=== PATIENT | male | born 1960 | race Caucasian/White ===

== ENCOUNTER 2016-12-28 15:53 | Emergency (ER) | payer OTHER ==
[~2016-12-28] VITALS: Ht 167.6 cm; Wt 77.1 kg
--- NOTE | ~2016-12-28 | CT4 ---
[facility] A Service of [facility] RADIOLOGY TEXT RESULTS PATIENT: WOLF CINTRON LOCATION: SED : 62 UNIT #: [id number] AGE: [address]: RAFAL PRICE SEX: M ORDER DR: [id number] [address] [address] [id number] E MR#: [id number] Acc #: [id number] NAME: WOLF CINTRON : 1960 SEX: M STUDY DATE/TIME: 12/28/2016 17:20 UNIT: SED ROOM: STUDY DESCRIPTION: CT Abd and Pelv Wo Cont Attending Physician: Rafal Price Ordering Physician: Rafal Price Primary Care Physician: Kai Mishra M.D. MEDICAL IMAGING REPORT This report is preliminary unless electronic signature is present. EXAM CT abdomen and pelvis without contrast HISTORY Nausea, vomiting, lower abdominal pain x1 week. COMPARISON CT abdomen and pelvis 12/31/2014 FINDINGS Axial images performed through the abdomen and pelvis without contrast. Multiplanar reconstructed images reviewed at a workstation. This CT exam was performed with one or more of the following radiation dose reduction techniques: Automatic exposure control, adjustment of mA and/or kV according to patient size, and iterative reconstruction. Lung bases remarkable for extensive emphysema and fibrosis and extensive right middle lobe bronchiectasis and bronchial wall thickening. Small amount of left lower lobe bronchiectasis. No acute airspace disease or consolidation, no effusions. Liver and spleen unremarkable. The gallbladder is surgically absent. Pancreas unremarkable. There is a left adrenal nodule measuring about 3.6 x 1.9 cm. This may be slightly increased when compared to the patient's study from 2014, but overall morphology remains unchanged. There is also a small nodule right adrenal gland. Comparison also made to CT in December 2013 and the left adrenal nodule does not appear significantly changed. Patient demonstrates a horseshoe kidney. Visualized GI tract unremarkable, except for a few scattered colonic diverticula. PELVIS: Bladder, prostate unremarkable. Osseous structures unremarkable except for degenerative changes lower thoracic spine. Extraabdominal soft tissues unremarkable. [facility] A Service of [facility] RADIOLOGY TEXT RESULTS PATIENT: WOLF CINTRON [id number] [birth year] UNIT #: [id number] AGE: [address]: RAFAL PRICE SEX: M ORDER DR: IMPRESSION 1. No acute intraabdominal or intrapelvic pathology. 2. Horseshoe kidney. 3. Left adrenal nodule not significantly changed when compared to studies dating back to December 2013, probably represents an incidental adenoma. Dictated by... Zulema Long M.D. THIS IS AN ELECTRONICALLY VERIFIED REPORT Zulema Long M.D. at 12/28/2016 10:04 PM JEFF/shahla TD: 12/28/2016 19:24 JOB #: [id number] MEDICAL IMAGING REPORT Page 1 of 1
--- NOTE | ~2016-12-28 | CR63 ---
[facility] A Service of [facility] RADIOLOGY TEXT RESULTS PATIENT: WOLF CINTRON LOCATION: SED : 62 UNIT #: [id number] AGE: [address]: RAFAL PRICE SEX: M ORDER DR: [id number] [address] [address] [id number] E MR#: [id number] Acc #: [id number] NAME: WOLF CINTRON : 1960 SEX: M STUDY DATE/TIME: 12/28/2016 17:19 UNIT: SED ROOM: STUDY DESCRIPTION: CR Chest 2 View Attending Physician: Rafal Price Ordering Physician: Rafal Priec Primary Care Physician: Kai Mishra M.D. MEDICAL IMAGING REPORT This report is preliminary unless electronic signature is present. EXAM PA and lateral chest HISTORY Cough and fatigue for 1 week. FINDINGS Two views of the chest demonstrate bilateral emphysema and moderately extensive interstitial scarring in both lungs and probable multifocal mild bronchiectasis. No airspace infiltrates. Small amount of fluid or pleural thickening at the lateral left base, stable compared to 01/01/2015. IMPRESSION 1. No definite active disease. 2. Bilateral emphysema and fibrotic scarring and probable bronchiectasis. Findings are similar to 01/01/2015. Dictated by... Alexi Anthony M.D. THIS IS AN ELECTRONICALLY VERIFIED REPORT Alexi Anthony M.D. at 12/28/2016 11:23 PM LUIS ANGEL/teresa TD: 12/28/2016 19:10 JOB #: [id number] MEDICAL IMAGING REPORT Page 1 of 1
[~2016-12-28 15:53] MED LIST: ACTOS PO; ADVAIR 250-501 EAC1 IH; ADVAIR 250-501 EACH; ADVAIR 250-501 EACH IH; ALBUTEROL17 GM IH; ALBUTEROL17 GM INH; AMOXICILLIN500 M1 PO; ASPIRIN81 MG PO; ATORVASTATIN CA10 MG PO; AUGMENTIN PO; BACTRIM DS TABL1 TA1 PO; BENADRYL25 M3 PO; CHOLESTEROL MED; CITALOPRAM HBR40 MG PO; COLACE PO; DIABETIC MED; DOXYCYCLINE PO; FAMOTIDINE PO; FENOFIBRATE160 MG PO; FLEXERIL10 MG PO; GABAPENTIN300 M2 PO; GLIPIZIDE10 MG PO; GLUCOTROL PO; HUMALOG MI100 UNIT/4 SQ; HYDROCODON-ACE1 EAC7 PO; HYPERTENSION; IMODIUM A-D2 M1 PO; INVOKANA100 MG PO; JANUVIA PO; JANUVIA50 MG PO; KEFLEX PO; KEFLEX500 M1 PO; LEVAQUIN PO; LEVEMIR FL100 UNIT/1 SQ; LIPITOR40 MG PO; LISINOPRIL PO; LISINOPRIL10 MG PO; METFORMIN HCL1000 M1 PO; METFORMIN HCL850 MG PO; METFORMIN PO; MUCINEX DM1 TAB.SR . PO; NYSTATIN-TRIAMC15 G1 TOP; PHENERGAN25 M1 PO; PIOGLITAZONE30 MG PO; PRAVACHOL PO; PRAVACHOL20 MG PO; PREDNISONE PO; PYRIDIUM PO; ROXICODONE5 MG PO; TESSALON200 MG PO; TRIGLIDE160 M1 PO; TYLENOL #3 PO; VIBRAMYCIN100 M1 PO; VICODIN 5/500 T1 TAB PO; VOLTAREN50 MG PO; ZESTRIL10 MG PO
[2016-12-28] MEDS ORDERED: BASAGLAR INSULIN SUBQ (16:33)
[2016-12-28] MEDS ORDERED: HUMALOG INSULIN SUBQ (16:33)
[2016-12-28] MEDS ORDERED: METFORMIN PO (16:33)
[2016-12-28] MEDS ORDERED: INVOKANA100 MG PO (16:34)
[2016-12-28] MEDS ORDERED: LISINOPRIL PO (16:34)
[2016-12-28] MEDS ORDERED: JANUVIA PO (16:34)
[2016-12-28 17:26] LABS: BASOPHIL# 0.1 X10e3 (0-0.3); BASOPHIL% 1.1 % (0-2.5); EOSINOPHIL# 0.4 X10e3 (0-0.7); EOSINOPHIL% 4.5 % (0.0-7.0); HEMATOCRIT 43.7 % (38.0-50.0); HEMOGLOBIN 14.5 gm/dL (13.0-16.0); LYMPHOCYTE# 2.5 X10e3 (1.0-3.5); LYMPHOCYTE% 29.3 % (17.0-45.0); MEAN CORPUSCULAR HEMOGLOBIN 27.2 PG (28-34); MEAN CORPUSCULAR HGB CONC 33.1 g/dL (30-36); MEAN PLATELET VOLUME 8.8 FL (6.5-11.5); MONOCYTE# 0.6 X10e3 (0-1.0); MONOCYTE% 7.2 % (3.0-12.0); NEUTROPHIL# 4.9 X10e3 (1.5-7.1); NEUTROPHIL% 57.9 % (40-75); PLATELET COUNT 208 X10e3 (140-420); RED BLOOD COUNT 5.33 X10e (3.90-5.60); RED CELL DISTRIBUTION WIDTH 13.7 % (11.0-15.5); WHITE BLOOD COUNT 8.5 X10e3 (4.0-10.5)
[2016-12-28 17:38] LABS: URINE SOURCE CLEAN CATCH
[2016-12-28 17:40] LABS: URINE APPEARANCE CLEAR; URINE BILIRUBIN NEG (NEG); URINE BLOOD 2+ (NEG); URINE COLOR YELLOW; URINE GLUCOSE 300 MG/DL (NORM); URINE KETONE NEG (NEG); URINE LEUKOCYTE ESTERASE NEG (NEG); URINE NITRATE NEG (NEG); URINE PROTEIN 2+ (NEG); URINE SPECIFIC GRAVITY <=1.005 (1.003-1.035); URINE UROBILINOGEN 0.2 MG/DL (NORM)
[2016-12-28 17:41] LABS: DIFF IND NO
[2016-12-28 17:42] LABS: MICRO INDICATED? YES
[2016-12-28 17:52] LABS: CULTURE INDICATED? NO; URINE BACTERIA NEG (NEG); URINE WBC 0-2 /[HPF] (0-5)
[2016-12-28 18:04] LABS: ALBUMIN SERUM 4.2 g/dL (3.5-5.0); ALKALINE PHOSPHATASE 60 U/L (32-92); ALT (SGPT) 56 U/L (10-40); AST (SGOT) 21 U/L (10-42); BILIRUBIN,TOTAL 0.3 mg/dL (0.2-2.0); BLOOD UREA NITROGEN 17 mg/dL (9-23); CALCIUM SERUM 9.1 mg/dL (8.4-10.2); CARBON DIOXIDE 30 mmol/L (22-31); CHLORIDE 108 mmol/L (100-111); GLOM FILT RATE Estimated 84.4 mL/min (>60); GLUCOSE FASTING 282 mg/dL (70-110); LIPASE 37 U/L (22-51); POTASSIUM 3.9 mmol/L (3.5-5.1); PROTEIN TOTAL SERUM 7.7 g/dL (6.0-8.3); SODIUM 140 mmol/L (135-145)
[2016-12-28 18:05] LABS: BILIRUBIN, DIRECT <0.1 mg/dL (0.0-0.2); BILIRUBIN,INDIRECT 0.2 mg/dL (0.0-0.9)
== END 2016-12-28 19:33 | disposition home or self-care (01) ==
LOC: SED 15:53
PROVIDERS: Nurse Practitioner
DX: K29.70 Gastritis, unspecified, without bleeding (principal); R06.02 Shortness of breath; E11.65 Type 2 diabetes mellitus with hyperglycemia; I10 Essential (primary) hypertension; E78.5 Hyperlipidemia, unspecified; J45.909 Unspecified asthma, uncomplicated; Z90.49 Acquired absence of other specified parts of digestive tract; Z79.4 Long term (current) use of insulin
CPT/HCPCS: 36415; 71020; 74176; 80048; 80076; 81003; 82947; 83690; 85025; 94640; 96361; 96374; 99284; J2405